=== PATIENT | male | born 1990 | race Caucasian/White ===

== ENCOUNTER 2021-09-14 14:24 | Emergency (ER) | payer OTHER | END 2021-09-14 15:35 | disposition home or self-care (01) | LOC: NAV ERS 14:24 | DX: S93.401A Sprain of unspecified ligament of right ankle, initial encounter (principal); X50.1XXA Overexertion from prolonged static or awkward postures, initial encounter; Z79.899 Other long term (current) drug therapy | CPT/HCPCS: 29515 ==